=== PATIENT | male | born 1950 | race Caucasian/White ===

== ENCOUNTER 2018-02-23 10:24 | Day surgery (SDC) | payer MEDICARE, OTHER ==
[2018-02-22 10:49] VITALS: BMI 27.7
[2018-02-23] MEDS ORDERED: LACTATED RINGERS 1,000 ML IV ONE (11:07)
[2018-02-23] MEDS ORDERED: LIDOCAINE 1% 20 ML VIAL (10MG/ML) FOR IV START INTRADERMA ONE (11:07)
[2018-02-23 11:10] VITALS: RESP 16; TEMP 98
[2018-02-23] MEDS ORDERED: PROPOFOL 10 MG/ML 20 ML VIAL IV ONE (12:06)
--- NOTE | 2018-02-23 12:35 | P.PCN ---
Date of Procedure: 02/23/18 Procedure(s) Performed: Procedure: Total colonoscopy. Preoperative diagnosis: History of polyps. Postoperative diagnosis: 1. Diffuse diverticulosis with no evidence of acute diverticulitis, strictures, obvious polyps or tumors. 2. Internal hemorrhoids with no evidence of bleeding. Preparation: HalfLytely prep. Sedation: Was provided by anesthesia. Brief clinical history: The patient is 67-year-old male who is scheduled for this evaluation because of history of polyps. His last exam was around 5 years ago. The patient had three other exams before that and there were polyps on his very first exam. At this time, he has no abdominal complaints, bleeding or anemia. He had a positive cologuard test this year. Procedure: With the patient on his left lateral decubitus position and after informed consent and adequate sedation, the perianal area was inspected and it did not show any fissures or fistulas. There were no masses felt on digital rectal examination. The Olympus CFH 190L video colonoscope was then inserted in the rectum in the usual fashion and advanced to the cecum. There was diffuse diverticulosis and less than ideal preparation but there was no evidence of acute diverticulitis, strictures, obvious polyps or tumors. No overt bleeding or obstruction. I retroflexed the endoscope in the rectum before the endoscope was withdrawn. Low-grade internal hemorrhoids were noted but there was no evidence of bleeding. The patient tolerated the procedure well. Plan: The patient was reassured. Discussed dietary measures. He will follow up with you as planned and I recommended repeat exam in 5 years.
[2018-02-23 12:49] VITALS: BP 127/82; PULSE 64
== END 2018-02-23 13:15 | disposition home or self-care (01) ==
LOC: ORWHC2ENDO 10:24
DX: K57.30 Diverticulosis of large intestine without perforation or abscess without bleeding (principal); K64.8 Other hemorrhoids; R19.5 Other fecal abnormalities; Z86.010 Personal history of colon polyps; I10 Essential (primary) hypertension; Z79.82 Long term (current) use of aspirin; Z79.899 Other long term (current) drug therapy; Z85.828 Personal history of other malignant neoplasm of skin; F17.290 Nicotine dependence, other tobacco product, uncomplicated
CPT/HCPCS: 45378; J2704

== ENCOUNTER → 2018-10-04 | Outpatient (CLI) | payer OTHER ==
--- NOTE | 2018-10-04 15:43 | US ---
EXAMINATION TYPE: US scrotum with doppler. Grayscale and color Doppler Duplex imaging performed of t sachi scrotum. DATE OF EXAM: 10/04/2018 COMPARISON: NONE CLINICAL HISTORY: disorder of male genital organs, unspec N50.9. EXAM MEASUREMENTS: TESTICLES: Right Testicle: 4.4 x 2.5 x 2.6 cm Left Testicle: 4.1 x 2.7 x 2.8 cm EPIDIDYMIS HEAD: Right Epididymis: 0.9 cm Left Epididymis: 0.7 cm Doppler performed to assess for testicular vascularity; good bilateral color flow and waveforms are s een. There is no evidence of testicular torsion. Presence of hydroceles: Yes, bilaterally. Left greater than right Presence of varicoceles: No Left side hydrocele measuring 6.8 x 2.9 x 4.7 cm IMPRESSION: 1. Large left hydrocele measures 6.8 cm and has a very few internal echoes that could represent artif act from reverberation or minimal internal debris. 2. Small right hydrocele. 3. No current evidence of testicular torsion.
== END | disposition home or self-care (01) ==
LOC: RADUSWWP 13:47
DX: N43.3 Hydrocele, unspecified (principal)
CPT/HCPCS: 76870; 93975